=== PATIENT | female | born 1980 | race Two or more races ===

== ENCOUNTER 2019-04-12 02:03 | Emergency (ER) | payer MEDICAID ==
[~2019-04-12] VITALS: Ht 160 cm; Wt 54.9 kg
--- NOTE | 2019-04-12 02:11 | NUR ---
CALLED PT TO BE TRIAGED, NO ANSWER
[2019-04-12] MEDS ORDERED: ONDANSETRON HCL/PF 4 MG/2 ML VIAL ONE (02:30)
[2019-04-12 02:42] LABS: BASOPHILS # (AUTO) 0.1 /CMM (0.0-0.2); BASOPHILS % (AUTO) 0.8 % (0.0-2.0); EOSINOPHILS % (AUTO) 1.1 % (0.0-6.0); HEMATOCRIT 37 % (33-45); HEMOGLOBIN 12.5 g/dL (11.5-14.8); LYMPHOCYTES # (AUTO) 1.9 /CMM (0.8-4.8); LYMPHOCYTES % (AUTO) 26.9 % (20.0-44.0); MEAN CORPUSCULAR HGB CONC 33 g/dl (31.0-36.0); MEAN CORPUSCULAR VOLUME 87 fL (82-100); MONOCYTES # (AUTO) 0.8 /CMM (0.1-1.30); MONOCYTES % (AUTO) 10.9 % (2.0-12.0); NEUTROPHILS # (AUTO) 4.3 /CMM (1.8-8.9); NEUTROPHILS % (AUTO) 60.3 % (43.0-81.0); PLATELET COUNT (AUTO) 194 /CMM (150-450); RED BLOOD CELL COUNT(AUTO) 4.29 MIL/uL (4.0-5.2); WHITE BLOOD COUNT (AUTO) 7.2 K/uL (4.3-11.0)
[2019-04-12] MEDS: ONDANSETRON HCL/PF 4 MG/2 ML VIAL IVP ONE (02:43)
[2019-04-12] MEDS: IV NS 0.9% 1,000 ML BAG IV ONE (02:43)
--- NOTE | 2019-04-12 02:47 | NUR ---
PT UNABLE TO PROVIDE URINE SAMPLE AT THIS TIME
[2019-04-12 02:50] LABS: CALCIUM, SERUM 8.9 mg/dL (8.5-10.1); CREATININE 0.7 mg/dL (0.6-1.3); POTASSIUM 3.8 mmol/L (3.5-5.1)
[2019-04-12 02:55] LABS: ALBUMIN 3.8 g/dL (3.4-5.0); BILIRUBIN,DIRECT 0.2 mg/dL (0.0-0.2); BILIRUBIN,TOTAL 0.7 mg/dL (0.2-1.0); TOTAL PROTEIN, SERUM 7.4 g/dL (6.4-8.2)
--- NOTE | 2019-04-12 03:24 | NUR ---
PT SIGNED WAIVER FORM AND WAS PICKED UP FOR CT SCAN.
[2019-04-12 03:44] LABS: APPEARANCE,URINE CLEAR (CLEAR); BILIRUBIN,URINE NEGATIVE (NEGATIVE); BLOOD, URINE NEGATIVE Ery/uL (NEGATIVE); COLOR,URINE YELLOW (YELLOW); KETONES,URINE NEGATIVE (NEGATIVE); LEUKOCYTE ESTERASE ,URINE NEGATIVE (NEGATIVE); NITRITE, URINE NEGATIVE (NEGATIVE); PROTEIN,URINE NEGATIVE (NEGATIVE); UGLUCOSE NEGATIVE (NEGATIVE); UROBILINOGEN,URINE 0.2 EU/dL (0.2)
--- NOTE | 2019-04-12 05:04 | NUR ---
US TECH AT THE BED SIDE
--- NOTE | 2019-04-12 06:18 | NUR ---
IV removed. Catheter intact and site benign. Pressure and 4x4 applied to site. No bleeding noted.Patient discharged to home in stable condition. Written and verbal after care instructions given. Patient verbalizes understanding of instruction. pt was provided w/ a copy of all her lab sults and imaging. pt was picked up by her sister.
[2019-04-12 06:23] VITALS: BP 129/73
== END 2019-04-12 06:24 | disposition home or self-care (01) ==
LOC: ER 02:07
DX: K80.70 Calculus of gallbladder and bile duct without cholecystitis without obstruction (principal); R11.10 Vomiting, unspecified
CPT/HCPCS: 36415; 74176; 76705; 80048; 80076; 81001; 83690; 84702; 84703; 85025; 85730; 96361; 96374; 99284; J2405; J7030; 81000-TC

== ENCOUNTER 2019-08-23 12:39 | Emergency (ER) | payer MEDICAID ==
[~2019-08-23] VITALS: Ht 160 cm; Wt 56.7 kg
--- NOTE | 2019-08-23 13:00 | NUR ---
patient came in to the er c/o lower abd pain with frequent urination. On room air, breathing evenly and unlabored. kept comfortable, will continue to monitor accordingly.
[2019-08-23 13:07] LABS: APPEARANCE,URINE Clear (CLEAR); BILIRUBIN,URINE Negative (NEGATIVE); BLOOD, URINE Trace-intact Ery/uL (NEGATIVE); COLOR,URINE Yellow (YELLOW); KETONES,URINE Negative (NEGATIVE); LEUKOCYTE ESTERASE ,URINE Negative (NEGATIVE); NITRITE, URINE Negative (NEGATIVE); PH,URINE 7.5 (5.0-8.0); PROTEIN,URINE Negative (NEGATIVE); UGLUCOSE Negative (NEGATIVE); UROBILINOGEN,URINE 0.2 EU/dL (0.2)
[2019-08-23 13:08] LABS: WBC,URINE 0-2 /HPF (0-3)
[2019-08-23 13:09] LABS: BACTERIA,URINE Rare /HPF (None Seen); SQUAMOUS EPITHELIAL CELL,UR Rare /HPF (None Seen)
[2019-08-23 14:02] VITALS: BP 116/71
--- NOTE | 2019-08-23 14:02 | NUR ---
Patient discharged to home in stable condition. Written and verbal after care instructions given. Patient verbalizes understanding of instruction.
== END 2019-08-23 14:02 | disposition home or self-care (01) ==
LOC: ER 12:46
DX: N39.0 Urinary tract infection, site not specified (principal)
CPT/HCPCS: 81000-TC; 84703-TC

== ENCOUNTER 2022-03-19 17:53 | Emergency (ER) | payer MEDICAID ==
[~2022-03-19] VITALS: Ht 160 cm; Wt 59.0 kg
[2022-03-19 18:12] VITALS: BP 153/86
[2022-03-19] MEDS ORDERED: PRED50TA PO ×2 (18:25→19:00)
[2022-03-19] MEDS ORDERED: FAMO-131 PO ×2 (18:25→19:00)
[2022-03-19] MEDS ORDERED: diphenhydrAMINE HCL 50 MG CAPSULE PO ONE (18:30)
[2022-03-19] MEDS ORDERED: predniSONE 10 MG TABLET PO ONE (18:30)
[2022-03-19] MEDS ORDERED: FAMOTIDINE (20 MG) 20 MG TABLET PO ONE (18:30)
[2022-03-19] MEDS ORDERED: FAMOTIDINE (20 MG) 20 MG TABLET ONE (19:15)
[2022-03-19] MEDS ORDERED: diphenhydrAMINE HCL 50 MG CAPSULE ONE (19:15)
[2022-03-19] MEDS ORDERED: predniSONE 20 MG TABLET ONE (19:15)
--- NOTE | 2022-03-19 19:21 | NUR ---
Patient discharged to home in stable condition. Written and verbal after care instructions given. Patient verbalizes understanding of instruction.
== END 2022-03-19 19:22 | disposition home or self-care (01) ==
LOC: ER 18:25
DX: T63.441A Toxic effect of venom of bees, accidental (unintentional), initial encounter (principal); M79.652 Pain in left thigh; Z79.899 Other long term (current) drug therapy; Y92.89 Other specified places as the place of occurrence of the external cause
CPT/HCPCS: 99284; Q0163; J7512 ×2